=== PATIENT | female | born 1950 | race Caucasian/White ===

== ENCOUNTER 2022-11-16 21:45 | Emergency (ER) | payer SELFPAY ==
[~2022-11-16] VITALS: Ht 157.5 cm; Wt 61.2 kg
[2022-11-16] MEDS ORDERED: TDAP [DIPH/PERTUSSIS/TET] 0.5 ML VIAL IM ONE ×2 (22:00→22:12)
[2022-11-16] MEDS ORDERED: OXYC-128 PO (23:43)
--- NOTE | 2022-11-17 00:29 | NUR ---
Patient discharged to home in stable condition. Written and verbal after care instructions given. Patient verbalizes understanding of instruction.
[2022-11-17 00:30] VITALS: BP 135/82
== END 2022-11-17 00:33 | disposition home or self-care (01) ==
LOC: ER 21:58
DX: S52.612A Displaced fracture of left ulna styloid process, initial encounter for closed fracture (principal); S60.811A Abrasion of right wrist, initial encounter; R11.10 Vomiting, unspecified; W01.0XXA Fall on same level from slipping, tripping and stumbling without subsequent striking against object, initial encounter; Y93.89 Activity, other specified; Y92.89 Other specified places as the place of occurrence of the external cause; Y99.8 Other external cause status
CPT/HCPCS: 70450-TC; 70486-TC; 73110; 73130-TC; 90715